=== PATIENT | male | born 1940 | race Caucasian/White ===

== ENCOUNTER → 2016-10-18 | Outpatient (CLI) | payer OTHER ==
[~2016-10-18] MED LIST: ASPCH81 PO; ASPI81TA28 PO; BRIM0.2S OPB; CLOP1TAB15 PO; LATA0.009 OPB; NTRGSL/4 UT; PLV75 PO; SIMV40TA2 PO; TIMO0.2534 OPB; XLTOPS OPB; ZCR40 PO
[2016-10-18 13:20] LABS: BLOOD UREA NITROGEN 20 mg/dl (7-18); BUN/CREATININE RATIO 16.8 (10-20); CALCIUM 8.9 mg/dl (8.5-10.1); CARBON DIOXIDE 24 mmol/L (21-32); CHLORIDE 104 mmol/L (98-107); GLUCOSE 95 mg/dl (70-99); MAGNESIUM 2.3 mg/dl (1.8-2.4); POTASSIUM 4.2 mmol/L (3.5-5.1); SODIUM 140 mmol/L (136-145)
[2016-10-18 13:23] LABS: CHOLESTEROL 127 mg/dl (0-200); CHOLESTEROL/HDL RATIO 2.8; HDL CHOLESTEROL 45 mg/dl; LDL CHOLESTEROL CALCULATED 57 mg/dl; TRIGLYCERIDES 127 mg/dl (0-150); VERY LOW DENSITY LIPOPROT CALC 25 mg/dl
== END | disposition home or self-care (01) ==
LOC: C.LABPVFM 07:35
PROVIDERS: ATTEND Family Medicine
DX: I25.10 Atherosclerotic heart disease of native coronary artery without angina pectoris (principal); M79.1 Myalgia; E78.5 Hyperlipidemia, unspecified

== ENCOUNTER 2017-03-04 19:04 | Emergency (ER) | payer OTHER ==
[~2017-03-04] VITALS: Ht 172.7 cm; Wt 76.3 kg
[~2017-03-04 19:04] MED LIST changes: -ASPI81TA28 PO; -BRIM0.2S OPB; -PLV75 PO; -XLTOPS OPB; -ZCR40 PO
[2017-03-04 19:10] VITALS: TEMP 36.6; Ht 172.7 cm; Wt 76.3 kg
[2017-03-04] MEDS ORDERED: XLTOPS OPB (19:48)
[2017-03-04] MEDS ORDERED: ZCR40 PO (19:48)
[2017-03-04] MEDS ORDERED: PLV75 PO (19:48)
[2017-03-04] MEDS ORDERED: BRIM0.2S OPB (19:49)
[2017-03-04] MEDS ORDERED: ASPI81TA28 PO (19:49)
[2017-03-04 20:01] LABS: ISTAT CREATININE 1.2 mg/dl (0.6-1.3); ISTAT HEMOGLOBIN 16.7 g/dl (14.0-18.0); ISTAT IONIZED CALCIUM 1.25 mmol/l (1.12-1.32)
[2017-03-04 20:15] LABS: BUN/CREATININE RATIO 20.4 (10-20); CALCIUM 8.6 mg/dl (8.5-10.1); CREATININE 1.3 mg/dl (0.60-1.40); POTASSIUM 4.2 mmol/L (3.5-5.1)
[2017-03-04] MEDS ORDERED: OPTIRAY 320 IV PRN (20:15)
--- NOTE | 2017-03-04 20:20 | DIAGNOSTIC IMAGING REPORT ---
CT HEAD WITHOUT CONTRAST (CT) CLINICAL HISTORY: Head pain status post trauma COMPARISON STUDY: 05/07/2008 TECHNIQUE: Axial CT of the brain is performed from the vertex to the skull base. IV contrast was not administered for this examination. CT DOSE: FINDINGS: No intra or extra-axial mass lesions are visualized. There is no CT evidence of acute cortical infarction. There is no evidence of midline shift. There is no acute hemorrhage. No calvarial fractures are visualized. There is no evidence of pathologic ventricular dilatation. There is no evidence of acute sinusitis IMPRESSION: No acute intracranial findings Electronically signed by: Donovan Lantigua M.D. 03/04/2017 8:18 PM Dictated Date/Time: 03/04/2017 8:17 PM
--- NOTE | 2017-03-04 20:21 | DIAGNOSTIC IMAGING REPORT ---
CT OF THE CERVICAL SPINE CLINICAL HISTORY: Neck pain status post trauma COMPARISON STUDY: April 2008 CT DOSE: TECHNIQUE: CT scan of the cervical spine was performed from the skull base to the thoracic inlet. Images are reviewed in the axial, sagittal, and coronal planes. IV contrast was not administered for this examination. FINDINGS: The visualized portions of the lung apices reveal no evidence of pneumothorax. The prevertebral soft tissues are normal. No fractures or subluxations are visualized. There are multilevel degenerative changes IMPRESSION: No evidence of acute fracture or traumatic subluxation. Electronically signed by: Donovan Lantigua M.D. 03/04/2017 8:20 PM Dictated Date/Time: 03/04/2017 8:19 PM
--- NOTE | 2017-03-04 20:25 | DIAGNOSTIC IMAGING REPORT ---
CT ABD/PELVIS IV AND ORAL CONT CLINICAL HISTORY: Abdominal pain status post trauma COMPARISON STUDY: April 2008 TECHNIQUE: Following the IV administration of 119 mL of Optiray-320, CT scan of the abdomen and pelvis was performed from the lung bases to the proximal femurs. Images are reviewed in the axial, sagittal, and coronal planes. IV contrast was administered without complication. CT DOSE: FINDINGS: Lower chest: There are bibasal atelectatic changes. There is no pneumothorax. Liver: There is an enlarging 12 mm hypodensity within the right lobe of the liver. This is felt to represent a cyst. There is no evidence of acute hepatic injury. Gallbladder: Unremarkable. Spleen: Normal in size and attenuation. Pancreas: Unremarkable. Adrenal glands: Unremarkable. Kidneys: There are bilateral parapelvic cysts. There is a 19 mm left renal cyst. There is no evidence of acute renal injury. Bowel: There are no transition zones indicate bowel obstruction. The appendix appears normal. There is diverticulosis. There is no acute diverticulitis. There is no interloop fluid. There is no pneumatosis. There are no extraluminal gas collections. Peritoneum: There is no intraperitoneal free air or abdominal ascites. Vasculature: The abdominal aorta is normal in course and caliber. Adenopathy: None. Pelvic viscera: The bladder, and pelvic viscera are unremarkable. Skeletal structures: No fractures are visualized. There is partial ankylosis of the SI joints. IMPRESSION: No evidence of acute intra-abdominal or pelvic injury. Electronically signed by: Donovan Lantigua M.D. 03/04/2017 8:24 PM Dictated Date/Time: 03/04/2017 8:21 PM
--- NOTE | 2017-03-04 20:31 | DIAGNOSTIC IMAGING REPORT ---
CT OF THE CHEST WITH IV CONTRAST CLINICAL HISTORY: Left-sided chest pain. Chest trauma. COMPARISON STUDY: April 2008 TECHNIQUE: Following the IV administration of 119 mL of Optiray-320, CT of the thorax was performed from the thoracic inlet to the lung bases. Images are reviewed in the axial, sagittal, and coronal planes. IV contrast was administered without complication. CT DOSE: 1694.87 mGy.cm FINDINGS: Thyroid: Imaged portions of the thyroid gland are normal in appearance. Thoracic aorta: The thoracic aorta is normal in course and caliber, noting standard 3-vessel arch anatomy. No aneurysm or dissection is seen. Pulmonary vasculature: The pulmonary trunk is normal in caliber. There are no central filling defects identified to suggest pulmonary embolus. Note that this examination was not protocoled for the evaluation of pulmonary emboli. HEART: The heart is the upper limits of normal in size. There are coronary artery calcifications. Lungs and pleural spaces: There are no pleural effusions. There is no pneumothorax. There is no evidence of: Contusion. There are few scattered granulomas. There are dependent atelectatic changes. Mediastinum: There is no evidence of pathologic mediastinal adenopathy. There is no evidence of mediastinal hematoma Keerthi: There is no evidence of pathologic hilar adenopathy. Axilla: There is no erosive axillary adenopathy. Upper abdomen: There is a right lobe hepatic cyst. There are bilateral renal cysts. Skeletal structures: No fractures are visualized. Degenerative changes are present within the dorsal spine. There is partial ankylosis of the thoracic spine. IMPRESSION: No evidence of acute intrathoracic injury. Electronically signed by: Donovan Lantigua M.D. 03/04/2017 8:30 PM Dictated Date/Time: 03/04/2017 8:26 PM
[2017-03-04 20:37] LABS: BASO % 0.2 %; BASO ABS # 0.03 K/uL (0-0.2); COMPLETE YES; EOS % 0.9 %; HEMATOCRIT 45.2 % (42-52); IG% 0.2 %; LYMPH % 8.8 %; LYMPH ABS # 1.08 K/uL (1.2-3.4); MEAN CELL VOLUME 95.4 fL (80-100); MEAN CORPUSCULAR HEMOGLOBIN 33.1 pg (25-34); MEAN CORPUSCULAR HGB CONC 34.7 g/dl (32-36); MEAN PLATELET VOLUME 10.5 fL (7.4-10.4); MONO % 8.2 %; NEUT % 81.7 %; PLATELET COUNT 135 K/uL (130-400); RED BLOOD COUNT 4.74 M/uL (4.7-6.1); WHITE BLOOD COUNT 12.28 K/uL (4.8-10.8)
--- NOTE | 2017-03-04 20:38 | DIAGNOSTIC IMAGING REPORT ---
LEFT KNEE 1 OR 2 VIEWS ROUTINE CLINICAL HISTORY: Left knee pain status post trauma. 12 foot fall. COMPARISON: None. DISCUSSION: There are mild osteoarthritic changes. No acute fractures are visualized. A linear calcification adjacent to the anterior tibial tuberosity is felt to be chronic. Gastric calcifications are visualized. There is mild medial joint compartment narrowing IMPRESSION: Mild degenerative change. No acute fractures. Electronically signed by: Donovan Lantigua M.D. 03/04/2017 8:37 PM Dictated Date/Time: 03/04/2017 8:36 PM
--- NOTE | 2017-03-04 20:39 | DIAGNOSTIC IMAGING REPORT ---
RIGHT KNEE 1 OR 2 VIEWS ROUTINE CLINICAL HISTORY: Pain status post trauma. 12 feet fall. COMPARISON: None. DISCUSSION: There are no acute fractures. There are mild osteoarthritic changes. There is no evidence of significant joint effusion. There are basilar calcifications. IMPRESSION: Moderate osteoarthritic change. No acute fractures. Electronically signed by: Donovan Lantigua M.D. 03/04/2017 8:38 PM Dictated Date/Time: 03/04/2017 8:37 PM
[2017-03-04 20:41] VITALS: BP 170/91; PULSE 76; O2SAT 93
--- NOTE | 2017-03-05 01:18 | EMERGENCY ROOM VISIT NOTE ---
History Report prepared by Ashley: Nita Us Under the Supervision of: Dr. Michael Wilson M.D. First contact with patient: 19:13 Chief Complaint: FALL Stated Complaint: FELL ABOUT 12 FT, CHEST TO HIP TO KNEE PAIN History of Present Illness The patient is a 77 year old male who presents to the Emergency Room with complaints of a fall at 1530 today. The patient was picking cherries while on a ladder 10-12 feet high. He reached too far and fell sideways and landed in the grass on his left side. He denies falling because of chest pain or any other reasons. He did not hit his head and he did not lose consciousness. He has been acting normally according to his . Initially he had some SOB as the wind was knocked out of him, but he is breathing normally now. He does have some pain with breathing. He reports a bruise on his left hip, neck pain, and bilateral knee pain. He has some chest pain when he moves. He is able to walk, but has hip pain. He denies any shoulder pain, vision changes, headache, dental pain, abdominal pain, back pain, incontinence, weakness, numbness, or chest pain. He is currently on Plavix. He has a history of heart stents in 2007. Source of History: patient Onset: 1529 today Position: other (global) Quality: other (fall) Timing: other (episodic) Associated Symptoms: + neck pain, + SOB, No headache, No chest pain, No abdominal pain, No back pain, No weakness, No numbness Note: Pt reports hip pain, knee pain. Pt denies shoulder pain, vision changes, dental pain, incontinence. Review of Systems See HPI for pertinent positives & negatives. A total of 10 systems reviewed and were otherwise negative. Past Medical & Surgical Surgical Problems: (1) H/O heart artery stent Old medical records were reviewed. Nurse's notes were reviewed and I agree with. Family History FHx: cancer Social History Smoking Status: Never Smoker Marital Status: Occupation Status: retired Current/Historical Medications Scheduled Aspirin (Aspirin Ec), 162 MG PO DAILY Brimonidine Tartrate-Timolol M (Combigan), 1 DROP OPB HS Clopidogrel Bisulfate (Clopidogrel), 75 MG PO DAILY Latanoprost (Latanoprost), 1 DROP OPB QAM Simvastatin (Simvastatin), 40 MG PO QPM Scheduled PRN Nitroglycerin (Nitrostat), 0.4 MG UT UD PRN for Chest Pain Allergies Coded Allergies: No Known Allergies (Verified , 06/26/15) Physical Exam Vital Signs Date Time Temp Pulse Resp B/P (MAP) Pulse Ox O2 Delivery O2 Flow Rate FiO2 03/04/17 20:41 76 16 170/91 93 Room Air 03/04/17 19:10 36.6 74 18 160/87 95 Room Air Physical Exam General: Non ill appearing older male sitting on side of bed. Well developed well nourished in no acute distress, breathing comfortably on room air. Normal speech. GCS of 15. No board and collar. HEENT: Normal cephalic atraumatic. Pupils are equal round and reactive to light. Extraocular movements are intact. Oropharynx is pink with moist mucous membranes. No swelling of the mouth lips or tongue. Neck: Supple with a midline trachea. No meningeal signs or stiffness, no JVD or bruits. No Stridor. Chest: Clear to auscultation bilaterally. No wheezes or rhonchi. No increased work of breathing. No external signs of trauma or crepitus. Heart: regular rate and rhythm. Abdomen: Soft nontender, nondistended without rebound guarding or rigidity. Pelvis: Stable to rock. Extremities: No cyanosis clubbing or edema. No calf tenderness or assymetry. Mild tenderness to both knees with full ROM. Spine/Back. Non tender to palpation. No CVA tenderness. Small bruise on the left lateral flank. No shortening or deformity of the hip. Skin: Good turgor without rashes. Neurologic exam: Cranial nerves two through 12 are intact. Motor and sensation are intact and symmetrical throughout. Medical Decision & Procedures ER Provider Diagnostic Interpretation: X-ray results as stated below per interpretation by me and the radiologist. Radiology results as stated below per my review and radiologist interpretation: RIGHT KNEE 1 OR 2 VIEWS ROUTINE CLINICAL HISTORY: Pain status post trauma. 12 feet fall. COMPARISON: None. DISCUSSION: There are no acute fractures. There are mild osteoarthritic changes. There is no evidence of significant joint effusion. There are basilar calcifications. IMPRESSION: Moderate osteoarthritic change. No acute fractures. Electronically signed by: Donovan Lantigua M.D. 03/04/2017 8:38 PM Dictated Date/Time: 03/04/2017 8:37 PM LEFT KNEE 1 OR 2 VIEWS ROUTINE CLINICAL HISTORY: Left knee pain status post trauma. 12 foot fall. COMPARISON: None. DISCUSSION: There are mild osteoarthritic changes. No acute fractures are visualized. A linear calcification adjacent to the anterior tibial tuberosity is felt to be chronic. Gastric calcifications are visualized. There is mild medial joint compartment narrowing IMPRESSION: Mild degenerative change. No acute fractures. Electronically signed by: Donovan Lantigua M.D. 03/04/2017 8:37 PM Dictated Date/Time: 03/04/2017 8:[address] HEAD WITHOUT CONTRAST (CT) CLINICAL HISTORY: Head pain status post trauma COMPARISON STUDY: 05/07/2008 TECHNIQUE: Axial CT of the brain is performed from the vertex to the skull base. IV contrast was not administered for this examination. CT DOSE: FINDINGS: No intra or extra-axial mass lesions are visualized. There is no CT evidence of acute cortical infarction. There is no evidence of midline shift. There is no acute hemorrhage. No calvarial fractures are visualized. There is no evidence of pathologic ventricular dilatation. There is no evidence of acute sinusitis IMPRESSION: No acute intracranial findings Electronically signed by: Donovan Lantigua M.D. 03/04/2017 8:18 PM Dictated Date/Time: 03/04/2017 8:[address] OF THE CHEST WITH IV CONTRAST CLINICAL HISTORY: Left-sided chest pain. Chest trauma. COMPARISON STUDY: April 2008 TECHNIQUE: Following the IV administration of 119 mL of Optiray-320, CT of the thorax was performed from the thoracic inlet to the lung bases. Images are reviewed in the axial, sagittal, and coronal planes. IV contrast was administered without complication. CT DOSE: 1694.87 mGy.cm FINDINGS: Thyroid: Imaged portions of the thyroid gland are normal in appearance. Thoracic aorta: The thoracic aorta is normal in course and caliber, noting standard 3-vessel arch anatomy. No aneurysm or dissection is seen. Pulmonary vasculature: The pulmonary trunk is normal in caliber. There are no central filling defects identified to suggest pulmonary embolus. Note that this examination was not protocoled for the evaluation of pulmonary emboli. HEART: The heart is the upper limits of normal in size. There are coronary artery calcifications. Lungs and pleural spaces: There are no pleural effusions. There is no pneumothorax. There is no evidence of: Contusion. There are few scattered granulomas. There are dependent atelectatic changes. Mediastinum: There is no evidence of pathologic mediastinal adenopathy. There is no evidence of mediastinal hematoma Keerthi: There is no evidence of pathologic hilar adenopathy. Axilla: There is no erosive axillary adenopathy. Upper abdomen: There is a right lobe hepatic cyst. There are bilateral renal cysts. Skeletal structures: No fractures are visualized. Degenerative changes are present within the dorsal spine. There is partial ankylosis of the thoracic spine. IMPRESSION: No evidence of acute intrathoracic injury. Electronically signed by: Donovan Lantigua M.D. 03/04/2017 8:30 PM Dictated Date/Time: 03/04/2017 8:[address] OF THE CERVICAL SPINE CLINICAL HISTORY: Neck pain status post trauma COMPARISON STUDY: April 2008 CT DOSE: TECHNIQUE: CT scan of the cervical spine was performed from the skull base to the thoracic inlet. Images are reviewed in the axial, sagittal, and coronal planes. IV contrast was not administered for this examination. FINDINGS: The visualized portions of the lung apices reveal no evidence of pneumothorax. The prevertebral soft tissues are normal. No fractures or subluxations are visualized. There are multilevel degenerative changes IMPRESSION: No evidence of acute fracture or traumatic subluxation. Electronically signed by: Donovan Lantigua M.D. 03/04/2017 8:20 PM Dictated Date/Time: 03/04/2017 8:[address] ABD/PELVIS IV AND ORAL CONT CLINICAL HISTORY: Abdominal pain status post trauma COMPARISON STUDY: April 2008 TECHNIQUE: Following the IV administration of 119 mL of Optiray-320, CT scan of the abdomen and pelvis was performed from the lung bases to the proximal femurs. Images are reviewed in the axial, sagittal, and coronal planes. IV contrast was administered without complication. CT DOSE: FINDINGS: Lower chest: There are bibasal atelectatic changes. There is no pneumothorax. Liver: There is an enlarging 12 mm hypodensity within the right lobe of the liver. This is felt to represent a cyst. There is no evidence of acute hepatic injury. Gallbladder: Unremarkable. Spleen: Normal in size and attenuation. Pancreas: Unremarkable. Adrenal glands: Unremarkable. Kidneys: There are bilateral parapelvic cysts. There is a 19 mm left renal cyst. There is no evidence of acute renal injury. Bowel: There are no transition zones indicate bowel obstruction. The appendix appears normal. There is diverticulosis. There is no acute diverticulitis. There is no interloop fluid. There is no pneumatosis. There are no extraluminal gas collections. Peritoneum: There is no intraperitoneal free air or abdominal ascites. Vasculature: The abdominal aorta is normal in course and caliber. Adenopathy: None. Pelvic viscera: The bladder, and pelvic viscera are unremarkable. Skeletal structures: No fractures are visualized. There is partial ankylosis of the SI joints. IMPRESSION: No evidence of acute intra-abdominal or pelvic injury. Electronically signed by: Donovan Lantigua M.D. 03/04/2017 8:24 PM Dictated Date/Time: 03/04/2017 8:21 PM Laboratory Results 03/04/17 20:26 Red Blood Count 4.74, Mean Corpuscular Volume 95.4, Mean Corpuscular Hemoglobin 33.1, Mean Corpuscular Hemoglobin Concent 34.7, Mean Platelet Volume 10.5, Neutrophils (%) (Auto) 81.7, Lymphocytes (%) (Auto) 8.8, Monocytes (%) (Auto) 8.2, Eosinophils (%) (Auto) 0.9, Basophils (%) (Auto) 0.2, Neutrophils # (Auto) 10.02, Lymphocytes # (Auto) 1.08, Monocytes # (Auto) 1.01, Eosinophils # (Auto) 0.11, Basophils # (Auto) 0.03 03/04/17 19:43 Test 03/04/17 19:43 03/04/17 19:50 03/04/17 20:26 Est Creatinine Clear Calc Drug Dose 47.5 ml/min Estimated GFR () 61.9 Estimated GFR (Non- 53.4 BUN/Creatinine Ratio 20.4 (10-20) Calcium Level 8.6 mg/dl (8.5-10.1) Bedside Hemoglobin 16.7 g/dl (14.0-18.0) Bedside Hematocrit 49 % (42-52) Bedside Sodium 142 mEq/L (135-144) Bedside Potassium 4.1 mEq/L (3.3-5.0) Bedside Chloride 103 mEq/L (101-112) Bedside Total CO2 25 mEq/l (24-31) Anion Gap 19.0 mmol/L (16-25) Bedside Blood Urea Nitrogen 29 mg/dl (7-18) Bedside Creatinine 1.2 mg/dl (0.6-1.3) Bedside Glucose (other) 116 mg/dl (70-99) Bedside Ionized Calcium (Carito) 1.25 mmol/l (1.12-1.32) White Blood Count 12.28 K/uL (4.8-10.8) Red Blood Count 4.74 M/uL (4.7-6.1) Hemoglobin 15.7 g/dL (14.0-18.0) Hematocrit 45.2 % (42-52) Mean Corpuscular Volume 95.4 fL (80-100) Mean Corpuscular Hemoglobin 33.1 pg (25-34) Mean Corpuscular Hemoglobin Concent 34.7 g/dl (32-36) Platelet Count 135 K/uL (130-400) Mean Platelet Volume 10.5 fL (7.4-10.4) Neutrophils (%) (Auto) 81.7 % Lymphocytes (%) (Auto) 8.8 % Monocytes (%) (Auto) 8.2 % Eosinophils (%) (Auto) 0.9 % Basophils (%) (Auto) 0.2 % Neutrophils # (Auto) 10.02 K/uL (1.4-6.5) Lymphocytes # (Auto) 1.08 K/uL (1.2-3.4) Monocytes # (Auto) 1.01 K/uL (0.11-0.59) Eosinophils # (Auto) 0.11 K/uL (0-0.5) Basophils # (Auto) 0.03 K/uL (0-0.2) RDW Standard Deviation 47.3 fL (36.4-46.3) RDW Coefficient of Variation 13.5 % (11.5-14.5) Immature Granulocyte % (Auto) 0.2 % Immature Granulocyte # (Auto) 0.03 K/uL (0.00-0.02) Laboratory studies as stated above per my review. ED Course 1913: Past medical records reviewed. The patient was evaluated in room C11B, and a complete history and physical examination were performed. 2052: Upon reevaluation, the patient is resting comfortably. I discussed the results and treatment plan with him. He verbalized agreement of the treatment plan. The patient was discharged home. Medical Decision Differentials include, but are not limited to; trauma, orthopedic injury, internal injury, bleeding. Medication Reconciliation: I attest that I have personally reviewed the patient' s current medication list. Blood Pressure Screening: Patient was found to have a slightly elevated blood pressure due to circumstances. I do not believe that the patient requires hypertension monitoring. This patient comes in as described above he suffered a mechanical fall off a ladder when he was reaching. There is no syncope. IV access established blood work was obtained. I did pack when necessary CAT scans of his head, neck , chest , abdomen and pelvis. There is no evidence to suggest any significant injuries. There is no pneumothorax or definite rib fractures no pelvic or hip fracture seen x-rays of his knee were unremarkable. He is feeling good and would like to go home. he's can use ibuprofen for pain. Return if: increasing pain, worsening of symptoms, fever or chills, any new problems or concerns. Impression Primary Impression: Rib contusion Additional Impressions: Contusion of left hip Left hip pain Scribe Attestation The scribe's documentation has been prepared under my direction and personally reviewed by me in its entirety. I confirm that the note above accurately reflects all work, treatment, procedures, and medical decision making performed by me. Departure Information Dispostion Home / Self-Care Referrals Geoffrey Copeland M.D. (PCP) Forms HOME CARE DOCUMENTATION FORM, IMPORTANT VISIT INFORMATION Patient Instructions My [facility] Additional Instructions Rest. Be careful and getting up and down. For pain, may use Tylenol/acetaminophen a maximum of 650 mg every 6 hours, take with food. Do not take with any other medications that contain Tylenol/ acetaminophen May also use ibuprofen 400 mg every 6 hours. Take with food. Return if: Increasing pain, worsening of symptoms, fever or chills, any new problems or concerns. Follow-up with your doctor in 1-2 days for recheck Problem Qualifiers
== END 2017-03-04 21:10 | disposition home or self-care (01) ==
LOC: C.EDB 19:06 → C.EDC 21:10
DX: S70.02XA Contusion of left hip, initial encounter (principal); S20.212A Contusion of left front wall of thorax, initial encounter; W11.XXXA Fall on and from ladder, initial encounter; Y92.096 Garden or yard of other non-institutional residence as the place of occurrence of the external cause; Z79.02 Long term (current) use of antithrombotics/antiplatelets; Z79.82 Long term (current) use of aspirin; Z79.899 Other long term (current) drug therapy

== ENCOUNTER → 2017-08-04 | Outpatient (CLI) | payer OTHER ==
[~2017-08-04] MED LIST changes: -ASPCH81 PO; +ASPI81TA28 PO; +BRIM0.2S OPB; -CLOP1TAB15 PO; -LATA0.009 OPB; +PLV75 PO; -SIMV40TA2 PO; -TIMO0.2534 OPB; +XLTOPS OPB; +ZCR40 PO
[2017-08-04 13:49] LABS: ALT/SGPT 34 U/L (12-78); AST/SGOT 23 U/L (15-37); BLOOD UREA NITROGEN 19 mg/dl (7-18); BUN/CREATININE RATIO 15.2 (10-20); CALCIUM 8.9 mg/dl (8.5-10.1); CARBON DIOXIDE 28 mmol/L (21-32); CHLORIDE 102 mmol/L (98-107); CHOLESTEROL 135 mg/dl (0-200); CREATININE 1.22 mg/dl (0.60-1.40); GLUCOSE 97 mg/dl (70-99); POTASSIUM 4.4 mmol/L (3.5-5.1); SODIUM 138 mmol/L (136-145)
[2017-08-04 13:59] LABS: CHOLESTEROL/HDL RATIO 2.4; HDL CHOLESTEROL 57 mg/dl; LDL CHOLESTEROL CALCULATED 60 mg/dl; TRIGLYCERIDES 92 mg/dl (0-150); VERY LOW DENSITY LIPOPROT CALC 18 mg/dl
== END | disposition home or self-care (01) ==
LOC: C.LABPVFM 07:32
PROVIDERS: ATTEND Family Medicine
DX: E78.5 Hyperlipidemia, unspecified (principal); I49.9 Cardiac arrhythmia, unspecified